=== PATIENT | female | born 1960 | race Caucasian/White ===

== ENCOUNTER 2018-04-05 01:11 | Inpatient (IN) | payer SELFPAY ==
[~2018-04-05] VITALS: Ht 154.9 cm; Wt 74.6 kg
[2018-04-05 01:21] VITALS: Ht 154.9 cm; Wt 74.6 kg
[2018-04-05 02:04] LABS: microscopic required? YES; urine erythrocyte 1+ (NEGATIVE)
[2018-04-05 02:17] LABS: CALCIUM 8.4 mg/dL (8.5-10.1); CHLORIDE SERUM 98 mmol/L (98-107); CREATININE SERUM 1.3 mg/dL (0.6-1.0); GFR1 45 mL/min; GLUCOSE SERUM 334 mg/dL (74-106); POTASSIUM SERUM 3.6 mmol/L (3.5-5.1); SODIUM SERUM 138 mmol/L (136-145)
[2018-04-05 02:18] LABS: PLATELET COUNT 147 x10^3mcL (130-400); RED CELL DISTRIBUTION WIDTH 13.7 % (11.5-14.5)
[2018-04-05 02:21] LABS: AMPHETAMINE QUAL UR NONE DETECTED (See below)
[2018-04-05 02:25] LABS: ALKALINE PHOSPHATASE 81 U/L (46-116); BILIRUBIN TOTAL 0.61 mg/dL (0.20-1.00); FREE T4 0.93 ng/dL (0.76-1.46); LIPASE 218 IU/L (73-393); TOTAL PROTEIN, SERUM 7.3 g/dL (6.4-8.2)
[2018-04-05 02:53] LABS: ALBUMIN 3.2 g/dL (3.4-5.0)
[2018-04-05 03:08] LABS: ALT/SGPT 150 U/L (14-59); AST/SGOT 41 U/L (15-37)
[2018-04-05 03:12] LABS: OSMOLALITY SERUM 301 mOsm/kg (278-298)
[2018-04-05 03:18] LABS: MAGNESIUM 1.2 mg/dL (1.8-2.4); PHOSPHOROUS 2.8 mg/dL (2.5-4.9)
[2018-04-05 03:23] LABS: BAND NEUTROPHIL 11 % (0-10); BASOPHIL 0 % (0-2); MONOCYTE 3 % (0-7); SEGMENTED NEUTROPHILS 56 % (37-75)
[2018-04-05 03:25] LABS: PLATELET MORPHOLOGY PLATELETS NORMAL; rbc morphology (normal/abnorm) NORMAL (NORMAL)
[2018-04-05] MEDS ORDERED: METFORMIN HCL1000 MG PO (03:34)
[2018-04-05] MEDS ORDERED: GLIPIZIDE2.5 M1 PO (03:35)
[2018-04-05] MEDS ORDERED: CARVEDILOL6.25 M1 PO (03:39)
[2018-04-05] MEDS ORDERED: LISINOPRIL2.5 MG PO (03:39)
[2018-04-05 04:13] LABS: CHOLESTEROL 279 mg/dL (<200); CHOLESTEROL/HDL RATIO 9.6; HDL CHOLESTEROL 29 mg/dL (40-60); TRIGLYCERIDES 1707 mg/dL (<150)
[2018-04-05 04:30] VITALS: BP 128/59
[2018-04-05 05:22] VITALS: BP 128/59
[2018-04-05 08:24] VITALS: BP 130/69
[2018-04-05 11:46] LABS: BASOPHIL % 0.2 % (0-2); PLATELET COUNT 136 x10^3mcL (130-400); RED CELL DISTRIBUTION WIDTH 14.8 % (11.5-14.5)
[2018-04-05] MEDS ORDERED: LEVAQUIN250 M1 PO (15:07)
[2018-04-05 16:02] VITALS: BP 136/70
[2018-04-05] MEDS ORDERED: TRICOR48 M1 PO (16:30)
== END 2018-04-05 17:20 | disposition home or self-care (01) | DRG 871 ==
LOC: ED 01:11 → MU 02:40
PROVIDERS: Emergency Medicine; Family Medicine
DX: A41.9 Sepsis, unspecified organism (principal); N17.0 Acute kidney failure with tubular necrosis; N12 Tubulo-interstitial nephritis, not specified as acute or chronic; E72.20 Disorder of urea cycle metabolism, unspecified; R65.20 Severe sepsis without septic shock; I10 Essential (primary) hypertension; R31.9 Hematuria, unspecified; R35.0 Frequency of micturition; E11.42 Type 2 diabetes mellitus with diabetic polyneuropathy; R74.0 Nonspecific elevation of levels of transaminase and lactic acid dehydrogenase [LDH]; E78.5 Hyperlipidemia, unspecified; E11.65 Type 2 diabetes mellitus with hyperglycemia; E83.42 Hypomagnesemia
CPT/HCPCS: 36600; 82962; 83880; 84439; G0480; J0696; J3475; J3490; J7030; Q0092